=== PATIENT | male | born 1990 | race Caucasian/White ===

== ENCOUNTER 2024-05-31 11:17 | Emergency (ER) | payer OTHER, SELFPAY ==
[2024-05-31 11:18] VITALS: BP 148/101; PULSE 89; RESP 16; TEMP 36.8; O2SAT 99; BMI 33.9
[2024-05-31 11:48] LABS: Absolute Lymphocyte Count 1.39 X10^3/uL (0.83-4.51); Absolute Neutrophil Count 3.1 X10^3/uL (2.0-7.7); Basophil# 0.02 X10^3/uL; Basophil% 0.4 % (0-1); Eosinophil# 0.03 X10^3/uL; Eosinophils% 0.6 % (0-5); Hematocrit 43.7 % (40-54); Hemoglobin 15.8 g/dL (13.0-16.5); Lymphocyte # 1.39 X10^3/ul (0.83-4.51); Lymphocyte % 27.8 % (19-41); Mean Corp Hgb Conc 36.2 g/dL (32-36); Mean Corpuscular Hgb 30.2 pg (27.0-32.0); Mean Corpuscular Volume 83.6 fL (80-94); Mean Platelet Vol. 9.7 fl (6.2-12.0); Monocyte# 0.45 X10^3/uL; NRBC Flagged by Analyzer 0 % (0-5); Neutrophil # 3.09 X10^3/uL (2.7-7.7); Neutrophil % 61.8 % (47-70); Platelet Count 264 K/mm3 (150-450); RBC Distribution Width CV 11.9 % (11.6-14.6); Red Blood Count 5.23 M/mm3 (4.6-6.2)
--- NOTE | 2024-05-31 11:57 | CT_ITS ---
PROCEDURE: ABDOMEN/PELVIS W IV CONT ONLY REASON FOR EXAM: nausea, vomiting and diarrhea. TECHNIQUE: Abdomen and pelvis CT with intravenous contrast. No oral contrast. IV CONTRAST: 100 cc of Isovue-300. COMPARISON: None. FINDINGS: Lung bases: Clear Liver: Unremarkable. Gallbladder: Unremarkable. Spleen: Unremarkable. Pancreas: Unremarkable. Adrenals: Unremarkable. Kidneys: Unremarkable. Bladder: Unremarkable. Reproductive Organs: Unremarkable. Bowel: Findings suggestive of colitis of the right hemicolon. Appendix: Normal. Lymph nodes: No suspicious lymph node enlargement. Vasculature: Major vascular structures are unremarkable. Peritoneum / Retroperitoneum: No ascites. No free air. Bones: Unremarkable. CT/Abdomen/Pelvis W IV Cont ONLY IMPRESSION: Findings suggestive of colitis of the right hemicolon. One or more dose reduction techniques were used (e.g., Automated exposure contr ol, adjustment of the mA and/or kV according to patient size, use of iterative reconstruction technique). Reading Location: [id number]
--- NOTE | 2024-05-31 11:58 | ED.VIS.GI ---
HPI HPI - GI History of Present Illness Chief Complaint: Abd Pain Narrative Narrative: 34-year-old male who denies significant past medical history presents with nausea, vomiting, and diarrhea that has had since Tuesday, approximately 5 days ago. States he was feverish at that time. He has been experiencing bodyaches as well, which have resolved. Over the last 24 hours he has vomited once this morning and has had a few episodes of very watery stool. It was reported that it was green and black in color. He was seen at [facility], and was sent to the emergency department because of the color of his stool, and the fact that he is also experiencing mid epigastric cramping that radiates towards his back. Denies any recent antibiotic use. No exacerbating or alleviating factors. No previous abdominal surgeries. PFSH PFS Home Medications ?Medication ?Instructions ?Recorded ?Last Taken ?Type NK 05/31/24 Unknown History ciprofloxacin HCl 500 mg tablet 500 mg PO BID 10 days #20 TABLETS 05/31/24 Unknown Rx hydrocodone-acetaminophen 5-325mg 1 tab PO Q6H PRN PRN Pain 3 days 05/31/24 Unknown Rx 5mg-325mg #10 TABLETS metronidazole 500 mg tablet 500 mg PO TID #30 tabs 05/31/24 Unknown Rx Allergy/AdvReac Type Severity Reaction Status Date / Time No Known Allergies Allergy Verified 05/31/24 11:20 Social History (Updated 05/31/24 @ 12:21 by Namrata Collazo) household members: significant other Smoking Status: Current every day smoker tobacco type: cigarettes ROS ROS ED ROS Narrative Constitutional: No fever currently-resolved, no chills. HEENT: No sore throat. No neck pain. No loss of vision. No rhinorrhea. Cardiovascular: No chest pain. No palpitations. No pedal edema. Respiratory: No cough, no shortness of breath. Abdominal: Crampy epigastric abdominal pain radiating to back. 5 days of nausea and vomiting as well as watery stool reported to be green and black in color. Genitourinary: No dysuria. No hematuria. Musculoskeletal: Body aches-resolved. Neurologic: No headaches. No dizziness. No lightheadedness. Skin: No rash. No change in color. Psychiatric: No depression. No anxiety. EXAM Physical Exam Narrative Exam Narrative: Afebrile. Vital signs noted. Nontoxic-appearing. No pallor of skin. HEENT examination grossly unremarkable. Cardiovascular examination regular rate and rhythm. Lungs clear to auscultation bilaterally. The abdomen is soft with minimal tenderness to palpation in the epigastrium and towards the right upper quadrant as well. No guarding or rebound. No pain in right lower quadrant of abdomen. Positive bowel sounds. Neurological examination nonfocal and nonlateralizing. Seen ambulating to room from triage without difficulty. Const Vital Signs: 05/31/24 11:18 05/31/24 13:17 Temperature 98.2 F Temperature Source Temporal Pulse Rate 89 80 Respiratory Rate 16 14 Blood Pressure 148/101 H 138/85 H Blood Pressure Mean 116 102 Pulse Ox 99 99 Oxygen Delivery Method Room Air MDM MDM MDM Narrative Medical decision making narrative: Differential diagnosis includes but not limited to gastroenteritis versus colitis including C. difficile. I have low suspicion for parasitic infection based on the patient's history and physical. He may also have a pancreatitis versus acute cholecystitis. I have low suspicion for GI bleeding as he states he has been drinking a lot of blue Gatorade and denies other bleeding diathesis. Initial CBC obtained through protocol reviewed and he has normal white count of 5.0 with hemoglobin normal at 15.8 with hematocrit 43.7 and platelet count normal at 264. I did order stool for enteric pathogen, O&P and C. difficile should he produce sample of his stool. As BMP was ordered I added lipase and LFTs. Given his ongoing abdominal pain and cramping for the last 5 days, CT was obtained to rule out colitis. Reviewed his laboratory work and he has normal white count of 5.0 with hemoglobin normal at 15.8, hematocrit 43.7, platelet count normal at 264. Review of the BMP shows glucose elevated at 113 with a normal anion gap of 12, normal sodium and normal potassium. AST is slightly elevated at 41 which I think is nonspecific, ALT normal at 29 and alk phos 55. Lipase normal at 21 so I doubt pancreatitis. In review of the CT of the abdomen pelvis he does have colitis in the right hemicolon. Upon repeat examination, his abdomen remains soft but he states he does not feel improved after Bentyl. At this point in time, his stool sample was sent with results pending. He was told he may need follow-up with gastroenterology. He was given his first doses of Cipro and Flagyl here in the emergency department and written prescriptions for the next 10 days. He was given a prescription for 10 tablets of [place] for breakthrough pain. In the differential diagnosis is infectious versus inflammatory bowel disease. I feel he can be discharged to follow-up. Return instructions were reviewed with the patient and his . Disposition is discharged home in stable condition. History & Record Review Discussion w/independent historian: Patient Lab Data Attestation: I reviewed the patient's lab results. Labs: Laboratory Results - last 24 hr 05/31/24 11:41 WBC 5.0 RBC 5.23 Hgb 15.8 Hct 43.7 MCV 83.6 MCH 30.2 MCHC 36.2 H RDW Std Deviation 36.0 RDW Coeff of Tuan 11.9 Plt Count 264 MPV 9.7 Immature Gran % (Auto) 0.400 Neut % (Auto) 61.8 Lymph % (Auto) 27.8 [place] % (Auto) 9.0 Eos % (Auto) 0.6 Baso % (Auto) 0.4 Absolute Neuts (auto) 3.1 Absolute Lymphs (auto) 1.39 Nucleated RBC % 0 Sodium 136 Potassium 4.0 Chloride Direct 102 Carbon Dioxide 22.7 Anion Gap 12 BUN 11 Creatinine 0.8 Estim Creat Clear Calc 140.56 Est GFR (MDRD) Non-Af 119 BUN/Creatinine Ratio 13.3 Glucose 113 H Calcium 8.8 Total Bilirubin 0.41 Direct Bilirubin 0.19 AST 41 H ALT 29 Alkaline Phosphatase 55 Total Protein 7.5 Albumin 4.3 Globulin 3.3 Lipase 21 Radiography Diagnostic Testing: Clinical Impression(s) from Imaging Studies Abdomen/Pelvis CT 05/31/24 11:57 IMPRESSION: Findings suggestive of colitis of the right hemicolon. One or more dose reduction techniques were used (e.g., Automated exposure control, adjustment of the mA and/or kV according to patient size, use of iterative reconstruction technique). Reading Location: [id number] Discharge Plan Triage Chief Complaint: Abd Pain ED Provider: Antwon Barrios Dx/Rx/DC Orders Clinical Impression: Colitis, Diarrhea, Abdominal pain Instructions: ED Understanding Colitis, ED Diarrhea, Unknown Cause Prescriptions: New ciprofloxacin HCl 500 mg tablet 500 mg PO BID 10 Days Qty: 20 0RF metronidazole 500 mg tablet 500 mg PO TID Qty: 30 0RF hydrocodone-acetaminophen 5-325 mg tablet 1 tab PO Q6H PRN PRN (Reason: Pain) 3 Days Qty: 10 0RF No Action NK Primary Care Provider: Care Physician,No Primary Referrals: Friend,Pedro, DO [Med Staff - Active Staff] - 1 Week if not improving Care Physician,No Primary [Primary Care Provider] - Activity Restrictions/Additional Instructions: Antibiotics as directed. Return with sustained high fever, increased pain, new or worsening symptoms. Follow-up with your primary care provider as you may need referral to gastroenterology as well. Do not drink alcohol with the use of metronidazole. Print Language: Mongolian Disposition Disposition: Home, Self Care
[2024-05-31] MEDS: Dicyclomine 20 MG/2 ML Vial IM (12:14)
[2024-05-31] MEDS: Ondansetron 4 MG/2 ML Vial IV (12:14)
[2024-05-31 12:47] LABS: Anion Gap 12 (5-15); BUN 11 mg/dL (4-19); BUN/Creat Ratio 13.3 RATIO (10-20); Calcium 8.8 mg/dL (7.6-11.0); Carbon Dioxide 22.7 mmol/L (22.0-29.0); Chloride 102 mmol/L (96-108); Creatinine, Serum 0.8 mg/dL (0.8-1.3); EST Glomerular Filtration Rate 119 (>60); Estimated Creatinine Clearance 140.56 ml/min; Glucose 113 mg/dL (70-99); Sodium Level 136 mmol/L (133-145)
[2024-05-31 13:04] LABS: AST(SGOT) 41 U/L (<=37); Alanine Aminotransfer ALT/SGPT 29 U/L (<=46); Albumin, Serum 4.3 g/dL (3.5-5.0); Alkaline Phosphatase 55 U/L (40-129); Bilirubin, Direct 0.19 mg/dL (0.00-0.30); Globulin 3.3 g/dL (2.2-4.2); Lipase 21 U/L (13-75); Protein, Total 7.5 g/dL (5.9-8.4); Total Bilirubin 0.41 mg/dL (0.00-1.30)
[2024-05-31 13:17] VITALS: BP 138/85; PULSE 80; RESP 14; O2SAT 99
[2024-05-31] MEDS: Ciprofloxacin 500 MG Tablet PO (14:22)
[2024-05-31] MEDS: metroNIDAZOLE 500 MG Tablet PO (14:22)
[2024-05-31 14:25] VITALS: BP 138/85; PULSE 80; RESP 14; TEMP 36.7; O2SAT 99
== END 2024-05-31 14:26 | disposition home or self-care (01) ==
PROVIDERS: Emergency Provider Emergency Medicine; Referring Provider Emergency Medicine; Visit Provider Emergency Medicine
DX: R10.13 Epigastric pain (principal); K52.9 Noninfective gastroenteritis and colitis, unspecified; F17.210 Nicotine dependence, cigarettes, uncomplicated
CPT/HCPCS: 74177; 80048; 80076; 83690; 85025; 87177; 87209; 87493; 87506; 96372; 96374; 99284; Q9967; J2405